=== PATIENT | male | born 1965 | race Caucasian/White ===

== ENCOUNTER → 2017-01-06 | Outpatient (CLI) | payer OTHER ==
--- NOTE | 2017-01-06 11:51 | US ---
EXAMINATION TYPE: US abdomen complete DATE OF EXAM: 01/06/2017 COMPARISON: NONE CLINICAL HISTORY: R10.9 unspecified Abd Pain. Lower back pain, history of kidney stones EXAM MEASUREMENTS: Liver Length: 14.5 cm Gallbladder Wall: 0.2 cm CBD: 0.3 cm Spleen: 11.3 cm Right Kidney: 10.4 x 4.3 x 5.5 cm Left Kidney: 10.6 x 5.4 x 5.2 cm *Technical limitations due to large amount of overlying bowel content Pancreas: limited evaluation due to overlying bowel Liver: hyperechoic area = 0.9 x 0.8 x 0.9cm, probable hemangioma Gallbladder: no evidence of stones Evidence for sonographic Jerry's sign: no CBD: appears wnl Spleen: appears wnl Right Kidney: no evidence of hydronephrosis Left Kidney: probable cystic area mid = 1.4 x 1.4 x 1.4cm Upper IVC: wnl Abd Aorta: visualized portions appear wnl IMPRESSION: 1. Left renal cyst. Monitoring is recommended. 2. Probable hemangioma within the liver. 3. No renal stones or hydronephrosis.
== END | disposition home or self-care (01) ==
LOC: RADUSWWP 10:46
PROVIDERS: ATTEND Family Medicine
DX: N28.1 Cyst of kidney, acquired (principal)
CPT/HCPCS: 76700

== ENCOUNTER 2018-12-08 15:47 | Inpatient (IN) | payer OTHER ==
[2018-12-08] MEDS ORDERED: fentaNYL (PF) 50 MCG/ML 2 ML AMP IVP ONE (16:05)
[2018-12-08] MEDS ORDERED: methylPREDNISolone SOD SUCCI 125 MG/2 ML VIAL IV ONE (16:05)
[2018-12-08] MEDS ORDERED: LIDOCAINE 1% INJ 10MG/ML (20 ML MDV) SQ ONE ×2 (16:06→16:15)
[2018-12-08] MEDS ORDERED: IV FLUID CONTINUATION 1,000 ML IV ONE (16:13)
[2018-12-08] MEDS ORDERED: BIVALIRUDIN BOLUS 250 MG/50 ML IV ONE (16:27)
[2018-12-08] MEDS ORDERED: BIVALIRUDIN 250 MG in SODIUM CHLORIDE 0.9% 50 ML IV ONE (16:28)
[2018-12-08] MEDS ORDERED: NITROGLYCERIN 1000MCG/10ML SYRINGE INTRACORON ONE (16:37)
[2018-12-08] MEDS ORDERED: IOPAMIDOL-370 100ML BTL INJ ONE ×3 (16:38→17:01)
[2018-12-08] MEDS ORDERED: SODIUM CHLORIDE 0.9% 1,000 ML IV SCH (17:00)
[2018-12-08] MEDS ORDERED: ATROPINE SULFATE 0.1 MG/ML 10ML SYRINGE IV PRN (17:00)
[2018-12-08] MEDS ORDERED: RX INFO: IV CONTRAST WAS GIVEN 1 EACH MISC MISCELLANE PRN (17:00)
[2018-12-08] MEDS ORDERED: MAG HYDROX/AL HYDROX/SIMETH 30 ML CUP PO PRN (17:00)
[2018-12-08] MEDS ORDERED: ZOLPIDEM 5 MG TAB PO PRN (17:00)
[2018-12-08] MEDS ORDERED: NITROGLYCERIN SL TABS 0.4 MG TAB SUBLINGUAL PRN (17:00)
[2018-12-08 17:34] LABS: Glucose,Whole Blood 99 mg/dL (75-99)
--- NOTE | 2018-12-08 20:07 | P.HPIM ---
History of Present Illness H&P Date: 12/08/18 Chief Complaint: chest pain Patient is a 54-year-old male past medical history of diverticulosis, chronic low back pain, hypertension not taking medication, and tobacco abuse who initially presented to [facility] with complaints of chest pain. He was found to have an ST segment elevated myocardial infarction. He was emergently transferred here directly to the [facility]. He underwent cardiac catheterization with placement of 1 drug-eluting stent to the RCA. He was subsequently admitted to ICU. Patient seen and examined at bedside. He reports intermittent chest discomfort for the last 2-3 days. Today it was worsening in nature and constant. He describes as retrosternal. He started noticing some left arm pain. Initially proceeded to his PCP but discovered that it was closed. He then drove himself to [facility]. He reports that he had pain radiating open his jaw, shortness of breath, and diaphoresis. He is unsure if his diaphoresis with secondary to working outside in the yard. That is when his chest pain began t beulah. He is having some intermittent dizziness and some nausea. He reports that he has had intermittent nausea over the last 4-5 days and worsening shortness of breath with exertion. He does have a family history of coronary artery disease and a father with a myocardial infarction. He has recently been on antibiotics for a diverticulitis flare. He reports that his diarrhea is improved but he still having intermittent bright red blood in his stools. He is not taking any medications on a chronic basis. He reports that Dr. Singh had asked him to take high blood pressure medication several years ago but it made him feel very tired and fatigued so he stopped this medication. He also has a history of high cholesterol but was able to control this with his diet. He reports that his last profile is approximately 2 years ago was within normal limits. Patient reports he was on Lipitor several years ago but had severe joint pain and muscle aches. He was taken off Lipitor and this improved. He reports some abdominal fullness, feels like he needs to urinate but is unable to do so. This is the first time this has occurred. Review of Systems Pertinent positives and negatives as discussed in HPI, a complete review of systems was performed and all other systems are negative. Past Medical History Additional Past Medical History / Comment(s): Diverticulitis. Chronic back pain. Hypertension not on medications, history of dyslipidemia which was improved with diet control History of Any Multi-Drug Resistant Organisms: None Reported Past Surgical History: Heart Catheterization With Stent, Hernia Repair, Orthopedic Surgery Additional Past Surgical History / Comment(s): COLONOSCOPY. LT ANKLE SX. 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 [employer] - Past Family History Father Family Medical History: Cancer, Congestive Heart Failure (CHF), Coronary Artery Disease (CAD), Myocardial Infarction (CT) Sister(s) Family Medical History: Cancer Medications and Allergies Home Medications Medication Instructions Recorded Confirmed Type Cholecalciferol (Vitamin D3) 5,000 unit PO DAILY 12/08/18 12/08/18 History [Vitamin D3] Allergies Allergy/AdvReac Type Severity Reaction Status Date / Time acetaminophen Allergy NOSE BLEEDS Verified 12/08/18 17:47 [From Darvocet-N 100] Iodinated Contrast- Oral and Allergy Anaphylaxis Verified 12/08/18 17:47 IV Dye propoxyphene Allergy NOSE BLEEDS Verified 12/08/18 17:47 [From Darvocet-N 100] Physical Exam Osteopathic Statement: *. No significant issues noted on an osteopathic structural exam other than those noted in the History and Physical/Consult. Vitals: Vital Signs Pulse Resp BP Pulse Ox 12/08/18 19:30 70 12 126/87 95 12/08/18 19:00 76 23 138/88 96 12/08/18 18:30 80 18 129/90 93 L 12/08/18 18:00 72 12 125/87 95 12/08/18 17:50 75 15 95 12/08/18 17:40 62 15 124/82 95 12/08/18 17:30 58 L 10 L 125/99 94 L Intake and Output 12/08/18 12/08/18 12/08/18 06:59 14:59 22:59 Intake Total 474 Balance 474 Intake: IV 324 Sodium Chloride 0.9% 1, 200 000 ml @ 100 mls/hr IV . Q10H [facility] Rx#:[id number] Oral 150 Other: Weight 82.72 kg General: non toxic, no distress, appears at stated age, normal weight Derm: no unusual rashes/lesions no unusual ecchymoses, warm, dry Head: atraumatic, normocephalic, symmetric Eyes: EOMI, no lid lag, anicteric sclera, pupils equal round reactive to light ENT: Nose and ears atraumatic, no thrush, no pharyngeal erythema Neck: No thyromegaly, no cervical lymphadenopathy, trachea midline, supple Mouth: no lip lesion, mucus membranes moist Cardiovascular: S1S2 reg, no murmur, positive posterior tibial pulse bilateral, no edema, capillary refill less than 2 seconds Lungs: CTA bilateral, no rhonchi, no rales , no accessory muscle use Abdominal: soft, nontender to palpation, no guarding, no appreciable organomegaly, normal bowel sounds Ext: no gross muscle atrophy, muscle strength 5 out of 5 in all upper extremities grossly, no contractures, Neuro: CN II-XI grossly intact, light touch intact all 4 extremities, finger to nose within normal limits, Psych: Alert, oriented, appropriate affect Thrombosis Risk Factor Assmnt - DVT/VTE Prophylaxis DVT/VTE Prophylaxis: Low risk, early ambulation encouraged - Choose All That Apply Any of the Below Risk Factors Present?: Yes Each Factor Represents 1 point: Age 41-60 years Thrombosis Risk Factor Assessment Total Risk Factor Score: 1 Thrombosis Risk Factor Assessment Level: Low Risk Assessment and Plan Assessment: ST segment elevated myocardial infarction with stent to the RCA -Aspirin, Lipitor, Plavix -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 Consider Crestor on discharge. -Beta blockade with metoprolol -Check echocardiogram Hypertension -Goal systolic blood pressure 120 or less -Continue with metoprolol -Follow blood pressures Dyslipidemia -Was diet controlled -Check lipid profile -Statin therapy, Crestor on discharge Tobacco abuse -Cessation -Does not want nicotine patch at this point in time History of diverticulitis -Has completed therapy -Continue outpatient follow-up The patient is admitted with an anticipated greater than 2 midnight stay for evaluation of STEMI. Surrogate decision-maker: CODE STATUS:Full DVT prophylaxis: SCDs Discussed with:Patient, nursing, family Anticipated discharge date: 1-[address]: home A total of 65 minutes was spent on the care of this complex patient more than 50% of the time was spent in counseling and care coordination.
[2018-12-08] MEDS: ATORVASTATIN 80 MG TAB PO SCH (20:17)
[2018-12-08] MEDS: METOPROLOL TARTRATE 25 MG TAB PO SCH (20:17)
--- NOTE | 2018-12-08 22:04 | CONS ---
CONSULTATION ATTENDING PHYSICIAN: Dr. Singh HISTORY OF PRESENT ILLNESS: Mr. Nunes is a 53-year-old male who is transferred from [facility] for symptoms of chest pain. The patient has no history of coronary artery disease. There is history of chronic tobacco use about a pack and half a day as well history of premature coronary disease in his father. The patient presented to the emergency room with symptoms of chest discomfort. The discomfort was radiated up to the neck, the jaw and the left arm. The discomfort was not always activity related. It has been going on for the last couple days. In the emergency room at [facility], his initial EKG revealed no acute changes. On subsequent EKGs, there was minimal ST-segment changes on the lateral precordial leads. Because of his persistent symptoms and his presentation, he was transferred to the ER at [facility]. The patient is active physically. Denies any prior history of chest discomfort. Denies any history of myocardial infarction, PND, orthopnea, or peripheral edema. He denies any dizziness or palpitation. He drinks alcohol occasionally. Drinks caffeine and smokes as noted. REVIEW OF SYSTEMS: RESPIRATORY system: He has no documented history of asthma, emphysema, but he has some cough. GI system: No recent GI bleed. No peptic ulcer disease. system: No dysuria or hematuria. NERVOUS SYSTEM: No stroke or seizure. PHYSICAL EXAMINATION: He is a 53-year-old male, alert, anxious. Blood pressure 125/80 with a heart rate in the 80s. HEAD: Normocephalic. Eyes sclerae anicteric. NECK: Good upstroke. No bruit. No jugular venous distention. LUNGS: Clear to auscultation. HEART: Regular rate and rhythm S1, S2. No S3. No S4. No murmur or rub. ABDOMEN: Soft, nontender. Positive bowel sounds. No megaly. EXTREMITIES: No edema. Intact distal pulses. LAB DATA: Lab data revealed a troponin of less than 0.017, potassium 4.2, BUN and creatinine 17 and 1. Platelet count 245, hemoglobin of 16.5. Initial EKG revealed sinus mechanism, normal axis and intervals with voltage criteria for left ventricular hypertrophy. Patient had a total of 4 EKGs. On the 4th EKG, there was minimal ST-segment elevation in lead 1 and aVL and the lateral precordial leads with appearance suggestive of early repolarization changes. IMPRESSION: 1. Symptoms of chest discomfort that have some features suggestive of coronary artery disease with borderline changes on the EKG. 2. Rule out acute myocardial infarction. 3. Chronic tobacco use. 4. Family history of premature coronary disease. RECOMMENDATION: In view of the persistent symptoms and the EKG changes, I have recommended proceeding with coronary angiography to assess his status and guide treatment. The rationale behind the procedure as well as risks and complications were discussed with the patient who is in full understanding and agreement. Thank you for this consult. We will follow with you. MMODL / IJN: [id number] /
--- NOTE | 2018-12-08 23:49 | PTCA ---
PERCUTANEOUSTRANS CORORONARY ANGIOGRAPHY Mr. Nunes is a 53-year-old male with a history of premature coronary disease in the family as well as chronic tobacco use, who presented with symptoms of chest discomfort, underwent cardiac catheterization, was found to have a subtotally occluded mid distal segment of the RCA. In view of that, recommendation made regarding angioplasty and stenting. The procedure as well as risks and complications were discussed with the patient who is in full understanding and agreement. PROCEDURE: A 6-Sri [place]ankan FR4 guiding catheter was introduced into the system. After cannulating the right coronary ostium, a 0.014 balanced medium weight J-wire was advanced across the lesion, positioned distally. Then a 2.5 x 12 mm Trek balloon was advanced. One inflation at 10 atmospheres was done. Following that, the balloon was removed and a 4.0 x 33 mm Xience Kirsty stent was deployed. It was dilated at 14 atmospheres. After the last inflation, after appropriate wait, the balloon and the guidewire were withdrawn back in the guiding catheter. Images were obtained, repeated. Those images reveal stable successful stenting. At that point, the guiding catheter, the balloon and the guidewire were removed. Left ventriculogram was performed. Following that, catheter and sheaths were removed. Hemostasis was obtained with deployment of an Angio- Seal. There was no immediate complication. Patient is returned to his room in stable condition. Of note, the patient received Angiomax per protocol. He was loaded with clopidogrel at [facility]. He had EKG changes and chest discomfort that resolved at the end of the procedure. RESULTS: Successful stenting of a long segment of the mid distal RCA with reduction of stenosis from 99% to 0%. RECOMMENDATION: Patient will be continued on aspirin, Plavix, beta pawan, and statin. The importance of dual antiplatelet treatment and smoking cessation were discussed with the patient and his family and they are in full understanding and agreement. Duration of procedure is 48 minutes. MMODL / IJN: [id number] /
--- NOTE | 2018-12-08 23:49 | CC ---
CARDIAC CATHETERIZATION REPORT Mr. Nunes is a 53-year-old male with a family history of premature coronary disease, chronic tobacco use, who presented to [facility] with symptoms of chest discomfort. He had borderline ST-segment elevation in 1 AVL lateral and peripheral leads. Because of that, he was transferred to [facility] and recommendation made regarding cardiac catheterization. The procedures, risks and complications were discussed with the patient who is in full understanding and agreement. PROCEDURE DESCRIPTION: Patient was brought to the catheterization laboratory technician in a fasting, semi sedated state, after receiving fentanyl and Benadryl and achieving moderate conscious state, attempt to cannulate the right radial artery was unsuccessful because of spasm, inability to advance the wire. At that time, using Xylocaine anesthesia and Seldinger technique, 6-Iranian sheath was introduced in the right femoral artery. Selective right and left coronary angiography performed using 6-Iranian 4 bend right and left Tammie catheter. Multiple views of the coronary arteries including hemiaxial views obtained. Following that, angioplasty and stenting of the RCA was performed. Following that, a 6-Iranian tight pigtail catheter was introduced into the left ventricle and a 30 degree CHRISTIAN view of the left ventricle was obtained. Following that, catheter and sheaths were removed. Hemostasis was obtained with deployment of an Angio-Seal. There was no immediate complication. Patient is returned to his room in stable condition. FINDINGS: FLUOROSCOPY: There was mild calcification involving the LAD and the right coronary artery. LEFT MAIN: This is a large-sized vessel bifurcating into left circumflex, left anterior descending artery, left main coronary artery has no evidence of obstructive coronary artery disease. LEFT ANTERIOR DESCENDING ARTERY: This is a large-sized vessel reaching toward the apex, giving rise to 2 diagonal branches. Left anterior descending artery in the mid segment has 10 to 20% plaque without any evidence of high-grade stenosis. There were plaques of 20% to 30% in the diagonal branch. LEFT CIRCUMFLEX: This is a large nondominant vessel giving rise to 2 large obtuse marginal branches. The left circumflex proximally has 20% to 30% plaque. The rest of the vessel has no high-grade stenosis. RIGHT CORONARY ARTERY: This is a large dominant vessel bifurcating distally into PDA and posterolateral segment and branches. The right coronary artery in mid segment has mild intimal disease of 20% to 30%, the mid distal segment has a 99% stenosis. The rest of the vessel has no high-grade stenosis. LEFT VENTRICULOGRAM: Left ventriculogram was performed in 30 degree CHRISTIAN view and revealed normal left ventricular size and systolic function. The ejection fraction is 60%. There was no significant mitral regurgitation. HEMODYNAMICS: There was no gradient across the aortic valve. The left ventricle end-diastolic ventricular was 12-16 mmHg. CONCLUSION: 1. Critical stenosis involving the mid distal segment of the right coronary artery. 2. Mild disease involving the left anterior descending coronary artery and the left circumflex. RECOMMENDATION: In view of finding anatomy, I recommend proceeding with angioplasty and stenting of the right coronary artery. The procedure as well as risks and complication were discussed with the patient who is in full understanding and agreement. MMODL / IJN: [id number] /
[2018-12-09 05:39] LABS: HCT 45.6 % (39.0-53.0); HGB 15.3 gm/dL (13.0-17.5); MCH 32.4 pg (25.0-35.0); MCHC 33.6 g/dL (31.0-37.0); MCV 96.2 fL (80.0-100.0); Platelet Count 246 k/uL (150-450); RBC 4.73 m/uL (4.30-5.90); RDW 12.7 % (11.5-15.5)
[2018-12-09 05:51] LABS: African American GFR (CKD) >90 (>60 ml/min/1.73 sqM); Anion Gap 7 mmol/L; Blood Urea Nitrogen 14 mg/dL (9-20); Calcium 8.8 mg/dL (8.4-10.2); Carbon Dioxide 20 mmol/L (22-30); Chloride 111 mmol/L (98-107); Cholesterol 183 mg/dL (<200); Glucose 123 mg/dL (74-99); HDL Cholesterol 46 mg/dL (40-60); LDL Cholesterol,Calculated 124 mg/dL (0-99); Potassium 4.6 mmol/L (3.5-5.1); Sodium 138 mmol/L (137-145); Triglycerides 66 mg/dL (<150)
[2018-12-09] MEDS: CHOLECALCIFEROL 1,000 UNIT TAB PO SCH (08:49)
[2018-12-09] MEDS: ASPIRIN 81 MG PO SCH (08:49)
[2018-12-09] MEDS: CLOPIDOGREL 75 MG TAB PO SCH (08:49)
[2018-12-09] MEDS: METOPROLOL TARTRATE 25 MG TAB PO SCH ×2 (08:49→20:46)
--- NOTE | 2018-12-09 09:06 | PN ---
PROGRESS NOTE Mr. Nunes is a 53-year-old male who presented with symptoms of chest pain and borderline EKG changes and underwent cardiac catheterization, was found to have critical stenosis involving the mid distal right coronary artery, underwent stenting of that vessel. He is doing quite well this morning. He is denying any chest pain. No dizziness. No palpitation. He denies any nausea. Apparently, he had myalgia from the atorvastatin in the past and we will see if he tolerates Crestor. Otherwise, he may be a candidate for Repatha or . He continues to be at this time on aspirin once a day, Plavix 75 mg daily, metoprolol tartrate 25 mg twice a day, and atorvastatin 80 mg daily. PHYSICAL EXAMINATION: Blood pressure 107/70 with a heart rate in the 70s. LUNGS: Clear. HEART: Regular rate and rhythm S1, S2. No S3. No rub. ABDOMEN: Soft, nontender. EXTREMITIES: No edema. Right groin no hematoma. LAB DATA: Lab data revealed a troponin peak of 0.175. BUN and creatinine 14 and 0.6, hemoglobin of 15.3, LDL of 124, sodium 138. IMPRESSION: 1. Status post myocardial infarction and stenting of the right coronary artery. 2. History of chronic tobacco use. 3. Hyperlipidemia. RECOMMENDATIONS: From the cardiac standpoint, we will continue present therapy. Increase his level of activity. He should be able to be transferred to telemetry floor. We will obtain echocardiogram with Doppler and depending on his progress, further recommendations will be made. MMALVINOL / IJN: [id number] /
[2018-12-09 16:05] VITALS: BMI 26.2
--- NOTE | 2018-12-09 17:29 | P.PN ---
Subjective Progress Note Date: 12/09/18 (delayed charting seen at 0830) Principal diagnosis: chest pain Patient is a 54-year-old male past medical history of diverticulosis, chronic low back pain, hypertension not taking medication, and tobacco abuse who initially presented to [facility] with complaints of chest pain. He was found to have an ST segment elevated myocardial infarction. He was emergently transferred here directly to the [facility]. He underwent cardiac catheterization with placement of 1 drug-eluting stent to the RCA. He was subsequently admitted to ICU. Has done well. LDL elevated. Patient reports hx of statin induced myopathy Patient seen and examined at bedside. No chest pain, no shortness of breath, no nausea, no vomiting, slight terra pain. Objective - Vital Signs Vital signs: Vital Signs Temp 97.9 F 12/09/18 16:00 Pulse 52 L 12/09/18 16:00 Resp 21 12/09/18 16:00 BP 101/66 12/09/18 16:00 Pulse Ox 95 12/09/18 16:00 Intake & Output 12/08/18 12/09/18 12/09/18 18:59 06:59 18:59 Intake Total 374 1840 750 Output Total 1000 550 Balance 374 840 200 Weight 82.72 kg 85.5 kg 85.5 kg Intake: IV 224 1300 0 Sodium Chloride 0.9% 1, 100 1300 0 000 ml @ 100 mls/hr IV . Q10H [facility] Rx#:[id number] Oral 150 540 750 Output: Urine 1000 550 Other: Voiding Method Urinal Urinal # Voids 1 - Exam General: non toxic, no distress, appears at stated age Derm: warm, dry Head: atraumatic, normocephalic, symmetric Eyes: EOMI, no lid lag, anicteric sclera Mouth: no lip lesion, mucus membranes moist Cardiovascular: S1S2 reg, no murmur, positive posterior tibial pulse bilateral, Lungs: CTA bilateral, no rhonchi, no rales , no accessory muscle use Abdominal: soft, nontender to palpation, no guarding, no appreciable organomegaly Ext: no gross muscle atrophy, no edema, no contractures Neuro: CN II-XI grossly intact, no focal neuro deficits Psych: Alert, oriented, appropriate affect - Labs CBC & Chem 7: 12/09/18 05:19 12/09/18 05:19 Labs: Abnormal Lab Results - Last 24 Hours (Table) 12/08/18 12/09/18 12/09/18 Range/Units 23:39 05:19 05:19 WBC (3.8-10.6) k/uL Chloride 111 H (98-107) mmol/L Carbon Dioxide 20 L (22-30) mmol/L Creatinine 0.64 L (0.66-1.25) mg/dL Glucose 123 H (74-99) mg/dL Troponin I 0.064 H* 0.175 H* (0.000-0.034) ng/mL LDL Cholesterol, Calc 124 H (0-99) mg/dL 12/09/18 Range/Units 05:19 WBC 11.0 H (3.8-10.6) k/uL Chloride (98-107) mmol/L Carbon Dioxide (22-30) mmol/L Creatinine (0.66-1.25) mg/dL Glucose (74-99) mg/dL Troponin I (0.000-0.034) ng/mL LDL Cholesterol, Calc (0-99) mg/dL Assessment and Plan Assessment: ST segment elevated myocardial infarction with stent to the RCA -Aspirin, Lipitor, Plavix -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 Crestor on discharge, will be evaluated at cardio office for PCSK9 inhibitor -Beta blockade with metoprolol -echocardiogram pending Hypertension -Goal systolic blood pressure 120 or less -Continue with metoprolol -Follow blood pressures Dyslipidemia -Was diet controlled -Statin therapy, Crestor on discharge Tobacco abuse -Cessation -Does not want nicotine patch at this point in time History of diverticulitis -Has completed therapy -Continue outpatient follow-up DVT prophylaxis: SCDs Discussed with:Patient, nursing,Dr. Kc Anticipated discharge date: [address]: home A total of 25 minutes was spent on the care of this complex patient more than 50% of the time was spent in counseling and care coordination.
[2018-12-09] MEDS: ATORVASTATIN 80 MG TAB PO SCH (20:46)
[2018-12-10 04:59] LABS: African American GFR (CKD) >90 (>60 ml/min/1.73 sqM); Anion Gap 6 mmol/L; Blood Urea Nitrogen 17 mg/dL (9-20); Calcium 8.8 mg/dL (8.4-10.2); Carbon Dioxide 24 mmol/L (22-30); Chloride 109 mmol/L (98-107); Glucose 95 mg/dL (74-99); Potassium 4.5 mmol/L (3.5-5.1); Sodium 139 mmol/L (137-145)
--- NOTE | 2018-12-10 08:43 | PN ---
PROGRESS NOTE Mr. Nunes is a 53-year-old male who presented with an acute myocardial infarction underwent stenting of his right coronary artery. He is doing well this morning. He is denying any symptoms of chest pain. His breathing has been stable. He denies any dizziness or palpitation. Hemodynamically, he is stable. He has no evidence of arrhythmia. He continues on aspirin once a day, Lipitor 80 mg daily, metoprolol tartrate 25 mg twice a day, and Plavix 75 mg daily. PHYSICAL EXAMINATION: Blood pressure 120/80 with the heart rate in the 60s. LUNGS: Clear. HEART: Regular rate and rhythm. S1, S2. No S3. No rub. ABDOMEN: Soft, nontender. EXTREMITIES: No edema. IMPRESSION: 1. Status post myocardial infarction and stenting of the RCA. 2. Chronic tobacco use. 3. Hypertension. RECOMMENDATION: Patient will obtain echocardiogram today and I am hopeful he will be able to be discharged home to be followed as an outpatient. I have discussed with him again the importance of smoking cessation. He will be started on a low-dose of an SANKET inhibitor. MMODL / IJN: [id number] /
[2018-12-10] MEDS ORDERED: LISINOPRIL 2.5 MG TAB PO SCH (09:00)
[2018-12-10] MEDS: ASPIRIN 81 MG PO SCH (09:15)
[2018-12-10] MEDS: CHOLECALCIFEROL 1,000 UNIT TAB PO SCH (09:15)
[2018-12-10] MEDS: CLOPIDOGREL 75 MG TAB PO SCH (09:15)
[2018-12-10] MEDS: METOPROLOL TARTRATE 25 MG TAB PO SCH (09:15)
--- NOTE | 2018-12-10 12:01 | ECHOF ---
Referral Reason:ct MEASUREMENTS -------- HEIGHT: 180.3 cm WEIGHT: 85.3 kg BP: 120/85 RVIDd: 2.7 cm (< 3.3) IVSd: 1.2 cm (0.6 - 1.1) LVIDd: 4.5 cm (3.9 - 5.3) LVPWd: 1.1 cm (0.6 - 1.1) IVSs: 1.5 cm LVIDs: 3.3 cm LVPWs: 1.7 cm LA Diam: 3.3 cm (2.7 - 3.8) LAESV Index (A-L): 20.04 ml/m Ao Diam: 3.5 cm (2.0 - 3.7) AV Cusp: 1.9 cm (1.5 - 2.6) MV EXCURSION: 28.243 mm (> 18.000) MV EF SLOPE: 132 mm/s (70 - 150) EPSS: 1.2 cm MV E Yaniv: 0.83 m/s MV DecT: 262 ms MV A Yaniv: 0.68 m/s MV E/A Ratio: 1.22 FINDINGS -------- Sinus rhythm. This was a technically good study. The left ventricular size is normal. There is borderline concentric left ventricular hypertrophy. Overall left ventricular systolic function is normal with, an EF between 60 - 65 %. The right ventricle is normal in size. Normal LA size by volume 22+/-6 ml/m2. The right atrium is normal in size. Interatrial and interventricular septum intact. The aortic valve is trileaflet and appears structurally normal. The mitral valve is normal. The tricuspid valve appears structurally normal. Trace/mild (physiologic) pulmonic regurgitation. The aortic root size is normal. Normal inferior vena cava with normal inspiratory collapse consistent with estimated right atrial pre ssure of 5 mmHg. There is no pericardial effusion. CONCLUSIONS -------- 1. Sinus rhythm. 2. This was a technically good study. 3. The left ventricular size is normal. 4. There is borderline concentric left ventricular hypertrophy. 5. Overall left ventricular systolic function is normal with, an EF between 60 - 65 %. 6. The right ventricle is normal in size. 7. Normal LA size by volume 22+/-6 ml/m2. 8. The right atrium is normal in size. 9. Interatrial and interventricular septum intact. 10. The aortic valve is trileaflet and appears structurally normal. 11. The mitral valve is normal. 12. The tricuspid valve appears structurally normal. 13. Trace/mild (physiologic) pulmonic regurgitation. 14. The aortic root size is normal. 15. Normal inferior vena cava with normal inspiratory collapse consistent with estimated right atrial pressure of 5 mmHg. 16. There is no pericardial effusion. TITLE I MATH TUTOR: Meagan Taylor RDCS
[2018-12-10 16:52] VITALS: BP 119/67; PULSE 61; RESP 15; TEMP 98.1
== END 2018-12-10 17:00 | disposition home or self-care (01) | DRG 247 ==
LOC: 3SCARD 15:47 → 2SICU 17:03
PROVIDERS: ADMIT Internal Medicine; ATTEND Hospitalist
PROC: B2151ZZ Fluoroscopy of Left Heart using Low Osmolar Contrast (ICD-10-PCS; 2018-12-08)
PROC: 027034Z Dilation of Coronary Artery, One Artery with Drug-eluting Intraluminal Device, Percutaneous Approach (ICD-10-PCS; principal; 2018-12-08 15:52)
PROC: B2111ZZ Fluoroscopy of Multiple Coronary Arteries using Low Osmolar Contrast (ICD-10-PCS; 2018-12-08 15:52)
DX: I21.11 ST elevation (STEMI) myocardial infarction involving right coronary artery (principal); E78.5 Hyperlipidemia, unspecified; I10 Essential (primary) hypertension; K57.90 Diverticulosis of intestine, part unspecified, without perforation or abscess without bleeding; G89.29 Other chronic pain; M54.5 Low back pain; F17.210 Nicotine dependence, cigarettes, uncomplicated; Z71.6 Tobacco abuse counseling; Z79.899 Other long term (current) drug therapy; Z87.19 Personal history of other diseases of the digestive system; Z88.5 Allergy status to narcotic agent; Z88.8 Allergy status to other drugs, medicaments and biological substances; Z88.6 Allergy status to analgesic agent; Z91.041 Radiographic dye allergy status; Z82.49 Family history of ischemic heart disease and other diseases of the circulatory system; Z80.9 Family history of malignant neoplasm, unspecified
CPT/HCPCS: 80048; 80061; 84484; 85027; 85347; 93306; 93458; C1874

== ENCOUNTER → 2019-01-29 | Outpatient (CLI) | payer OTHER ==
[2019-01-29 12:01] LABS: African American GFR (CKD) 98.5 (60.0-200.0); Albumin 4.3 g/dL (3.80-4.90); Albumin/Globulin Ratio 2.05 (1.60-3.17); Calcium 9.7 mg/dL (8.7-10.3); Chol/HDL Ratio 3.38; Globulin 2.1 g/dL (1.6-3.3); LDL Cholesterol,Calculated 88.2 mg/dL (0.0-131.0); Potassium 4.5 mmol/L (3.5-5.5); Total Bilirubin 0.8 mg/dL (0.3-1.2); Total Protein 6.4 g/dL (6.2-8.2); VLDL Calculation 23.8 mg/dL (5.00-40.00)
== END | disposition home or self-care (01) ==
LOC: LABWHC1 06:38
PROVIDERS: ATTEND Internal Medicine Interventional Cardiology
DX: E78.2 Mixed hyperlipidemia (principal)
CPT/HCPCS: 36415; 80053; 80061

== ENCOUNTER → 2019-06-18 | Outpatient (CLI) | payer OTHER ==
[2019-06-18 16:51] LABS: Chol/HDL Ratio 2.92; LDL Cholesterol,Calculated 72.8 mg/dL (0.0-131.0); VLDL Calculation 19.2 mg/dL (5.00-40.00)
== END | disposition home or self-care (01) ==
LOC: LABWHC1 08:21
PROVIDERS: ATTEND Nurse Practitioner Adult Health
DX: E78.2 Mixed hyperlipidemia (principal)
CPT/HCPCS: 36415; 80061

== ENCOUNTER 2020-02-01 00:55 | Emergency (ER) | payer OTHER ==
[2020-02-01 01:00] VITALS: TEMP 98.4
--- NOTE | 2020-02-01 01:20 | XR ---
EXAM: XR Chest, 2 Views CLINICAL HISTORY: ITS.REASON XR Reason: Chest Pain TECHNIQUE: Frontal and lateral views of the chest. COMPARISON: No relevant prior studies available. FINDINGS: Lungs: Unremarkable. No consolidation. Pleural space: Unremarkable. No pleural effusion or pneumothorax. Heart: Unremarkable. No cardiomegaly or pulmonary vascular congestion. Mediastinum: Unremarkable. Bones/joints: Unremarkable. IMPRESSION: No evidence of acute cardiopulmonary disease.
[2020-02-01 01:45] LABS: Basophils # (A) 0.1 k/uL (0-0.2); Basophils % (A) 1 %; Eosinophils # (A) 0.5 k/uL (0-0.7); Eosinophils % (A) 5 %; HGB 14.9 gm/dL (13.0-17.5); Lymphocytes # (A) 2.8 k/uL (1.0-4.8); Lymphocytes % (A) 31 %; MCHC 32.4 g/dL (31.0-37.0); MCV 98.7 fL (80.0-100.0); Mean Platelet Volume 7.4; Monocytes # (A) 0.7 k/uL (0-1.0); Monocytes % (A) 7 %; Neutrophils # (A) 4.9 k/uL (1.3-7.7); Neutrophils % (A) 54 %; Platelet Count 211 k/uL (150-450); RBC 4.66 m/uL (4.30-5.90); RDW 12.5 % (11.5-15.5)
[2020-02-01 01:53] LABS: Partial Thromboplastin Time 26.5 sec (22.0-30.0); Prothrombin Time 10.1 sec (9.0-12.0)
[2020-02-01 01:55] LABS: ALT 15 U/L (4-49); AST 23 U/L (17-59); African American GFR (CKD) >90 (>60 ml/min/1.73 sqM); Albumin 4.1 g/dL (3.5-5.0); Alkaline Phosphatase 123 U/L (38-126); Anion Gap 9 mmol/L; Blood Urea Nitrogen 20 mg/dL (9-20); Calcium 9.4 mg/dL (8.4-10.2); Carbon Dioxide 21 mmol/L (22-30); Chloride 106 mmol/L (98-107); Glucose 106 mg/dL (74-99); Magnesium 2.1 mg/dL (1.6-2.3); Non-African American GFR(CKD) >90 (>60 ml/min/1.73 sqM); Potassium 4.7 mmol/L (3.5-5.1); Sodium 136 mmol/L (137-145); Total Bilirubin 0.4 mg/dL (0.2-1.3)
[2020-02-01] MEDS ORDERED: MORPHINE SULFATE 4 MG/ML SYRINGE IV STA (02:05)
--- NOTE | 2020-02-01 02:07 | ED ---
Chest Pain HPI - General Chief Complaint: Chest Pain Stated Complaint: Chest Pain Time Seen by Provider: 02/01/20 01:09 Source: patient Mode of arrival: wheelchair Limitations: no limitations - History of Present Illness Initial Comments: This patient is a 54-year-old man who presents to be evaluated for epigastric chest pain that does radiate to his back. The patient states this had come on approximately 28 hours ago after he had lifted some heavy objects at work. Patient states that as the pain did not resolve he felt he should be seen here. He is not having any anginal type symptoms. The patient has had previous [place] but states this is not identical to that. MD Complaint: chest pain Onset/Timin -: hour(s) Onset: during rest Pain Location: epigastric Pain Radiation: back Severity: severe Quality: aching Consistency: constant Improves With: nothing Worsens With: nothing Treatments Prior to Arrival: none - Related Data Home Medications Medication Instructions Recorded Confirmed Cholecalciferol (Vitamin D3) 5,000 unit PO DAILY 12/08/18 12/08/18 [Vitamin D3] Previous Rx's Medication Instructions Recorded Rosuvastatin [Crestor] 20 mg PO HS #30 tablet 12/09/18 Aspirin 81 mg PO DAILY chew 12/10/18 Clopidogrel [Plavix] 75 mg PO DAILY #90 tab 12/10/18 Metoprolol Tartrate [Lopressor] 25 mg PO BID #180 tab 12/10/18 Nicotine 21Mg/24Hr Patch [Habitrol] 1 each TRANSDERM DAILY #14 patch 12/10/18 Nitroglycerin Sl Tabs [Nitrostat] 0.4 mg SUBLINGUAL Q5M PRN #25 tab 12/10/18 lisinopriL [Zestril] 2.5 mg PO DAILY #90 tab 12/10/18 Allergies Allergy/AdvReac Type Severity Reaction Status Date / Time acetaminophen Allergy NOSE BLEEDS Verified 02/01/20 01:00 [From Darvocet-N 100] Iodinated Contrast Media Allergy Anaphylaxis Verified 02/01/20 01:00 [Iodinated Contrast- Oral and IV Dye] propoxyphene Allergy NOSE BLEEDS Verified 02/01/20 01:00 [From Darvocet-N 100] Review of Systems ROS Statement: Those systems with pertinent positive or pertinent negative responses have been documented in the HPI. ROS Other: All systems not noted in ROS Statement are negative. Constitutional: Denies: fever, chills, weakness ENT: Denies: throat pain Respiratory: Denies: cough, dyspnea Cardiovascular: Reports: as per HPI, chest pain. Denies: palpitations, dyspnea on exertion, edema, syncope Gastrointestinal: Denies: abdominal pain, nausea, vomiting Genitourinary: Denies: dysuria, hematuria, testicular pain Musculoskeletal: Denies: back pain Skin: Denies: rash Neurological: Denies: headache, weakness, numbness EKG Findings - EKG Results: EKG: interpreted by DIONNE BHATT, sinus rhythm (Rate 77 bpm), normal axis, normal QRS, normal ST/T, no acute changes Past Medical History Past Medical History: Hyperlipidemia, Hypertension, Myocardial Infarction ([place]), Pneumonia Additional Past Medical History / Comment(s): Diverticulitis. Chronic back pain. History of Any Multi-Drug Resistant Organisms: None Reported Past Surgical History: Heart Catheterization With Stent, Hernia Repair, Orthopedic Surgery Additional Past Surgical History / Comment(s): COLONOSCOPY. LT ANKLE SX. BILAT KNEE SCOPES Past Anesthesia/Blood Transfusion Reactions: No Reported Reaction Date of Last Stent Placement:: December 08, 2018 Past Psychological History: No Psychological Hx Reported Smoking Status: Current every day smoker Past Alcohol Use History: Occasional, Rare Past Drug Use History: Marijuana - Past Family History Father Family Medical History: Cancer, Congestive Heart Failure (CHF), Coronary Artery Disease (CAD), Myocardial Infarction ([place]) Sister(s) Family Medical History: Cancer General Exam Limitations: no limitations General appearance: alert, in no apparent distress Head exam: Present: atraumatic, normocephalic Eye exam: Present: normal appearance. Absent: scleral icterus, conjunctival injection Neck exam: Present: normal inspection, full ROM Respiratory exam: Present: normal lung sounds bilaterally. Absent: respiratory distress, wheezes, rales, rhonchi, stridor, chest wall tenderness Cardiovascular Exam: Present: regular rate, normal rhythm, normal heart sounds. Absent: systolic murmur, diastolic murmur, rubs, gallop GI/Abdominal exam: Present: soft. Absent: distended, tenderness, guarding, rebound, rigid, mass, pulsatile mass, hernia Extremities exam: Present: normal inspection, normal capillary refill. Absent: pedal edema, calf tenderness Back exam: Present: normal inspection. Absent: CVA tenderness (R), CVA tenderness (L) Neurological exam: Present: alert Skin exam: Present: warm, dry, intact, normal color. Absent: rash Course Vital Signs 02/01/20 02/01/20 00:56 03:45 Temperature 98.4 F Pulse Rate 82 70 Respiratory 20 18 Rate Blood Pressure 155/73 130/70 O2 Sat by Pulse 100 98 Oximetry Chest Pain MDM - MDM Given the patient's previous cardiac history and the fact that his pain had not completely resolved, I recommend that patient be admitted for further evaluation and treatment, including at least cardiac monitoring, serial cardiac enzymes and cardiology consultation, but this point the patient is refusing. He does understand the risks associated. Disposition Clinical Impression: Chest pain Disposition: Left Against Medical Advice Condition: Undetermined Instructions (If sedation given, give patient instructions): Chest Pain (ED) Is patient prescribed a controlled substance at d/c from ED?: No Referrals: Samuel Singh MD [Primary Care Provider] - 1-2 days
[2020-02-01 03:46] VITALS: BP 130/70; PULSE 70; RESP 18
== END 2020-02-01 03:46 | disposition left against medical advice (07) ==
LOC: EC 00:55
DX: R07.9 Chest pain, unspecified (principal); I25.2 Old myocardial infarction; F17.200 Nicotine dependence, unspecified, uncomplicated; Z88.6 Allergy status to analgesic agent; Z91.041 Radiographic dye allergy status; Z88.5 Allergy status to narcotic agent; Z53.29 Procedure and treatment not carried out because of patient's decision for other reasons
CPT/HCPCS: 36415; 93005; 80053; 83735; 84484; 85025; 85610; 85730; 71046; 99285; 96374; J2270

== ENCOUNTER → 2020-05-08 | Outpatient (CLI) | payer OTHER ==
[2020-05-08 11:17] LABS: Albumin 4.7 g/dL (3.80-4.90); Albumin/Globulin Ratio 2.14 (1.60-3.17); Anion Gap 6.4 mmol/L (4.00-12.00); BUN/Creat Ratio 22.22 Ratio (12.00-20.00); Calcium 9.8 mg/dL (8.7-10.3); Carbon Dioxide 28.6 mmol/L (21.6-31.8); Chol/HDL Ratio 3.29; Globulin 2.2 g/dL (1.6-3.3); LDL Cholesterol,Calculated 100.8 mg/dL (0.0-131.0); Non-African American GFR(CKD) 95.8 (60.0-200.0); Potassium 5.4 mmol/L (3.5-5.5); Total Bilirubin 0.6 mg/dL (0.2-1.2); Total Protein 6.9 g/dL (6.2-8.2); VLDL Calculation 18.2 mg/dL (5.00-40.00)
== END | disposition home or self-care (01) ==
LOC: LABWHC1 07:05
PROVIDERS: ATTEND Internal Medicine Interventional Cardiology
DX: E78.2 Mixed hyperlipidemia (principal)
CPT/HCPCS: 36415; 80053; 80061

== ENCOUNTER → 2020-07-17 | Outpatient (CLI) | payer OTHER ==
[2020-07-17 17:43] LABS: Chol/HDL Ratio 3.41; LDL Cholesterol,Calculated 82.2 mg/dL (0.0-131.0); VLDL Calculation 23.8 mg/dL (5.00-40.00)
== END | disposition home or self-care (01) ==
LOC: LABWHC1 07:44
PROVIDERS: ATTEND Nurse Practitioner Adult Health
DX: E78.2 Mixed hyperlipidemia (principal)
CPT/HCPCS: 36415; 80061

== ENCOUNTER → 2020-08-25 | Outpatient (CLI) | payer OTHER | END | disposition home or self-care (01) | LOC: LABPAT 08:37 | PROVIDERS: ATTEND Student in an Organized Health Care Education/Training Program | DX: Z01.812 Encounter for preprocedural laboratory examination (principal); Z20.822 Contact with and (suspected) exposure to COVID-19 | CPT/HCPCS: U0003; C9803; U0005 ==

== ENCOUNTER 2020-09-15 09:45 | Day surgery (SDC) | payer OTHER ==
[2020-09-10 15:30] VITALS: BMI 26.4
[~2020-09-15 09:45] MED LIST: DEXAMETHASONE SOD PHOSPHATE 4 MG/ML 1 ML VIAL IV ONE; HYDROmorphone 0.5 MG/0.5 ML SYRINGE IVP PRN; LACTATED RINGERS 1,000 ML IV SCH; LIDOCAINE 1% (10MG/ML) FOR IV START INTRADERMA PRN; MIDAZOLAM 2 MG/2 ML VIAL IV PRN; ONDANSETRON 4 MG/2 ML VIAL IVP ONE
[2020-09-15] MEDS ORDERED: MIDAZOLAM 2 MG/2 ML VIAL IVP ONE (10:47)
[2020-09-15] MEDS ORDERED: fentaNYL (PF) 50 MCG/ML 2 ML AMP IVP ONE (10:47)
[2020-09-15] MEDS ORDERED: HEPARIN SODIUM,PORCINE/PF 5,000 UNIT/0.5 ML SYRINGE SQ ONE (12:00)
[2020-09-15] MEDS ORDERED: HEPARIN SODIUM,PORCINE 5,000 UNIT/ML 1 ML VIAL SQ ONE (12:01)
[2020-09-15] MEDS ORDERED: GLYCOPYRROLATE 0.2 MG/ML 2 ML VIAL ONE (12:25)
[2020-09-15] MEDS ORDERED: PROPOFOL 10 MG/ML 20 ML VIAL IV ONE (12:25)
[2020-09-15] MEDS ORDERED: ROCURONIUM 10 MG/ML (5 ML VIAL) IV ONE (12:25)
[2020-09-15] MEDS ORDERED: HYDROmorphone (PF) 1 MG/ML ONE (12:25)
[2020-09-15] MEDS ORDERED: ROPIVACAINE 5 MG/ML 30 ML VIAL ONE (12:25)
[2020-09-15] MEDS ORDERED: NEOSTIGMINE 1 MG/ML 10 ML VIAL ONE (12:25)
[2020-09-15] MEDS ORDERED: MIDAZOLAM 2 MG/2 ML VIAL ONE (12:25)
[2020-09-15] MEDS ORDERED: LIDOCAINE 1% INJ 10MG/ML (20 ML MDV) ONE (12:25)
[2020-09-15] MEDS ORDERED: SUCCINYLCHOLINE CHLORIDE 100 MG/5 ML SYR IV ONE (12:25)
[2020-09-15] MEDS ORDERED: fentaNYL (PF) 50 MCG/ML 2 ML AMP ONE (12:25)
[2020-09-15] MEDS ORDERED: LIDOCAINE 1%-EPI 1:100,000 20 ML VIAL SQ ONE ×2 (12:55)
--- NOTE | 2020-09-15 13:30 | P.ANPRN ---
Procedure Note - Anesthesia - Nerve Block Performed Right Erector Spinae Single Time Out Performed: Yes Date of Procedure: 09/15/20 Procedure Start Time: 10:48 Procedure Stop Time: 11:00 Location of Patient: PreOp Indication: Acute Post-Operative Pain, Dx/Pain Location, Requested by Surgeon Specifically requested for management of pain by DrFredrick: Toño Moe Sedation Type: Sedate with meaningful contact maintained Preparation: Sterile Prep Position: Sitting Catheter: None Needle Types: Kamryn Needle Gauge: 20 Ultrasound used to visualize needle placement: Yes Ultrasound used to observe medication spread: Yes Injectate: 0.5% Ropivacaine (see comment for volume) Blood Aspirated: No Pain Paresthesia on Injection Noted: No Resistance on Injection: Normal Image Stored and Saved: Yes Events: Uneventful and Well Tolerated (20cc 0.5% Ropivacaine)
[2020-09-15] MEDS ORDERED: LACTATED RINGERS 1,000 ML IV ONE (13:44)
[2020-09-15 14:04] VITALS: TEMP 97.3
[2020-09-15 14:43] VITALS: RESP 16
--- NOTE | 2020-09-15 14:44 | P.OP ---
Date of Procedure: 09/15/20 Preoperative Diagnosis: Right inguinal hernia Postoperative Diagnosis: Right inguinal hernia Procedure(s) Performed: Robotic-assisted right inguinal hernia repair Anesthesia: ROD Surgeon: Toño Moe Estimated Blood Loss (ml): 5 Condition: stable Disposition: PACU Description of Procedure: Patient as well as operative suite nurses supine position underwent general endotracheal anesthesia per Department of anesthesia prepped and draped usual sterile fashion timeout performed correct patient correct procedure correct site was verified. A 12 mm incision was made directly over the umbilicus carried down the fascia which was incised and the abdomen was entered under direct visualization and port was placed abdomen was insufflated no injuries were noted to 8 mm ports were placed on either side lateral to this and the patient was placed in Trendelenburg the robot was docked. Attention was turned to the right groin where there is a right internal hernia and no left inguinal hernia was noted. The peritoneum was taken down to the pubis medially to the so as both posteriorly and laterally the hernia sac was reduced off the cord structures and sure to preserve the cord structures. Progrip mesh was placed in the peritoneum was sutured back in place using 3-0 vlock. The supraumbilical port site was closed with 0 Vicryl for fascial stitch with aid of a Deepak-Mariela suture passer. All ports removed under direct visualization abdomen was desufflated Skin was closed with 4-0 Monocryl suture in subcuticular fashion with skin glue patient tolerated procedure well no apparent complications Plan - Discharge Summary Discharge Rx Participant: No New Discharge Prescriptions: No Action Cholecalciferol (Vitamin D3) [Vitamin D3] 5,000 unit PO DAILY Rosuvastatin [Crestor] 20 mg PO HS #30 tablet Aspirin 81 mg PO DAILY chew Metoprolol Tartrate [Lopressor] 25 mg PO BID #180 tab Nitroglycerin Sl Tabs [Nitrostat] 0.4 mg SUBLINGUAL Q5M PRN #25 tab PRN Reason: Chest Pain lisinopriL [Zestril] 2.5 mg PO DAILY #90 tab Ezetimibe [Zetia] 10 mg PO DAILY Discharge Medication List Cholecalciferol (Vitamin D3) [Vitamin D3] 5,000 unit PO DAILY 12/08/18 [History] Rosuvastatin [Crestor] 20 mg PO HS #30 tablet 12/09/18 [Rx] Aspirin 81 mg PO DAILY chew 12/10/18 [Rx] Metoprolol Tartrate [Lopressor] 25 mg PO BID #180 tab 12/10/18 [Rx] Nitroglycerin Sl Tabs [Nitrostat] 0.4 mg SUBLINGUAL Q5M PRN #25 tab 12/10/18 [Rx] lisinopriL [Zestril] 2.5 mg PO DAILY #90 tab 12/10/18 [Rx] Ezetimibe [Zetia] 10 mg PO DAILY 08/27/20 [History]
[2020-09-15] MEDS ORDERED: HYDROcodone/APAP 5-325MG 1 EACH TAB ONE (14:58)
[2020-09-15] MEDS ORDERED: HYDROcodone/APAP 5-325MG 1 EACH TAB PO ONE (14:58)
[2020-09-15 17:09] VITALS: BP 138/75; PULSE 85
== END 2020-09-15 17:15 | disposition home or self-care (01) ==
LOC: OR 09:45
PROVIDERS: ATTEND Student in an Organized Health Care Education/Training Program
DX: K40.90 Unilateral inguinal hernia, without obstruction or gangrene, not specified as recurrent (principal); I10 Essential (primary) hypertension; E78.5 Hyperlipidemia, unspecified; I25.2 Old myocardial infarction; F17.210 Nicotine dependence, cigarettes, uncomplicated; Z95.5 Presence of coronary angioplasty implant and graft; Z79.899 Other long term (current) drug therapy; Z88.5 Allergy status to narcotic agent; Z91.041 Radiographic dye allergy status; Z98.890 Other specified postprocedural states
CPT/HCPCS: 49650; 64461; J2250; J1644; J1100; J2710; J0690; J2405; J2001; J3010; J1170; J2795; J0330; J2704; 76942

== ENCOUNTER → 2020-11-03 | Outpatient (CLI) | payer OTHER ==
[2020-11-03 18:18] LABS: Chol/HDL Ratio 3.39; LDL Cholesterol,Calculated 69.4 mg/dL (0.0-131.0); VLDL Calculation 21.6 mg/dL (5.00-40.00)
== END | disposition home or self-care (01) ==
LOC: LABWHC1 08:14
PROVIDERS: ATTEND Nurse Practitioner Adult Health
DX: E78.2 Mixed hyperlipidemia (principal)
CPT/HCPCS: 36415; 80061; 84450; 84460

== ENCOUNTER → 2021-06-19 | Outpatient (CLI) | payer BC ==
[2021-06-19 11:57] LABS: ALT 23 U/L (10-49); AST 17 U/L (14-35); African American GFR (CKD) 110.3 (60.0-200.0); Albumin 4.3 g/dL (3.8-4.9); Albumin/Globulin Ratio 1.79 (1.60-3.17); Alkaline Phosphatase 94 U/L (41-126); BUN/Creat Ratio 17.44 Ratio (12.00-20.00); Blood Urea Nitrogen 15.7 mg/dL (9.0-27.0); Calcium 9.5 mg/dL (8.7-10.3); Chloride 102 mmol/L (96-109); Chol/HDL Ratio 2.53 Ratio; Globulin 2.4 g/dL (1.6-3.3); Glucose 87 mg/dL (70-110); LDL Cholesterol,Calculated 68.8 mg/dL (0.0-131.0); Non-African American GFR(CKD) 95.1 (60.0-200.0); Potassium 4.7 mmol/L (3.5-5.5); Sodium 139 mmol/L (135-145); Total Protein 6.7 g/dL (6.2-8.2); VLDL Calculation 15.32 mg/dL (5.00-40.00)
== END | disposition home or self-care (01) ==
LOC: LABWHC1 08:08
PROVIDERS: ATTEND Internal Medicine Interventional Cardiology
DX: E78.2 Mixed hyperlipidemia (principal)
CPT/HCPCS: 36415; 80053; 80061

== ENCOUNTER 2021-09-22 05:27 | Emergency (ER) | payer BC ==
[2021-09-22] MEDS ORDERED: DIAZEPAM 5 MG/ML 2 ML INJ IVP STA (06:46)
[2021-09-22] MEDS ORDERED: KETOROLAC 15 MG/ML 1 ML VIAL IVP STA (06:46)
[2021-09-22] MEDS ORDERED: methylPREDNISolone SOD SUCCI 125 MG/2 ML VIAL IV STA (06:46)
--- NOTE | 2021-09-22 07:36 | ED ---
Back Pain HPI - General Chief Complaint: Back Pain/Injury Stated Complaint: Back Pain Time Seen by Provider: 09/22/21 06:16 Source: patient, EMS, RN notes reviewed Mode of arrival: ambulatory Limitations: no limitations - History of Present Illness Initial Comments: This a 46-year-old male presents emergency Department chief complaint of low back pain. Patient presents via EMS was given fentanyl prior arrival which he states helped some of his pain. Patient states that he occasionally has some back pain no history of surgeries denies any bowel, bladder incontinence or retention or saddle anesthesias. Patient states does have some right leg pain radiating down. He has no decrease strength he states it just hurts to move. Patient states he feels spasms, tenderness the right lumbar region no trauma no abdominal pain no dysuria. - Related Data Home Medications Medication Instructions Recorded Confirmed Cholecalciferol (Vitamin D3) 5,000 unit PO DAILY 12/08/18 09/15/20 [Vitamin D3] Ezetimibe [Zetia] 10 mg PO DAILY 08/27/20 09/15/20 Previous Rx's Medication Instructions Recorded Rosuvastatin [Crestor] 20 mg PO HS #30 tablet 12/09/18 Aspirin 81 mg PO DAILY chew 12/10/18 Metoprolol Tartrate [Lopressor] 25 mg PO BID #180 tab 12/10/18 Nitroglycerin Sl Tabs [Nitrostat] 0.4 mg SUBLINGUAL Q5M PRN #25 tab 12/10/18 lisinopriL [Zestril] 2.5 mg PO DAILY #90 tab 12/10/18 Docusate [Colace] 100 mg PO DAILY 10 Days #10 capsule 09/15/20 HYDROcodone/APAP 5-325MG [[place] 1 tab PO Q6HR PRN 3 Days #12 tab 09/15/20 5-325] HYDROcodone/APAP 5-325MG [[place] 1 tab PO Q6HR PRN 3 Days #12 tab 09/15/20 5-325] Cyclobenzaprine [Flexeril] 10 mg PO TID PRN #15 tab 09/22/21 HYDROcodone/APAP 7.5-325MG [[place] 1 tab PO Q6HR PRN 3 Days #12 tab 09/22/21 7.5-325] Ibuprofen [Motrin] 600 mg PO Q8HR PRN #20 tab 09/22/21 predniSONE 50 mg PO DAILY #5 tab 09/22/21 Allergies Allergy/AdvReac Type Severity Reaction Status Date / Time Iodinated Contrast Media Allergy Anaphylaxis Verified 09/22/21 05:36 [Iodinated Contrast- Oral and IV Dye] propoxyphene Allergy NOSE BLEEDS Verified 09/22/21 05:36 [From Darvocet-N 100] Review of Systems ROS Statement: Those systems with pertinent positive or pertinent negative responses have been documented in the HPI. ROS Other: All systems not noted in ROS Statement are negative. Past Medical History Past Medical History: Hyperlipidemia, Hypertension, Myocardial Infarction ([place]), Pneumonia Additional Past Medical History / Comment(s): Diverticulitis. Chronic back pain. kidney stones Last Myocardial Infarction Date:: 02/07/19 History of Any Multi-Drug Resistant Organisms: None Reported Past Surgical History: Heart Catheterization With Stent, Hernia Repair, Orthopedic Surgery Additional Past Surgical History / Comment(s): COLONOSCOPY. LT ANKLE SX. BILAT KNEE SCOPES Past Anesthesia/Blood Transfusion Reactions: No Reported Reaction Date of Last Stent Placement:: December 08, 2018 Past Psychological History: No Psychological Hx Reported Smoking Status: Current every day smoker - Past Family History Father Family Medical History: Cancer, Congestive Heart Failure (CHF), Coronary Artery Disease (CAD), Myocardial Infarction ([place]) Sister(s) Family Medical History: Cancer General Exam Limitations: no limitations General appearance: alert, in no apparent distress Head exam: Present: atraumatic, normocephalic, normal inspection Respiratory exam: Present: normal lung sounds bilaterally. Absent: respiratory distress, wheezes, rales, rhonchi, stridor Cardiovascular Exam: Present: regular rate, normal rhythm, normal heart sounds. Absent: systolic murmur, diastolic murmur, rubs, gallop, clicks GI/Abdominal exam: Present: soft, normal bowel sounds. Absent: distended, tenderness, guarding, rebound, rigid Extremities exam: Present: other (Lower extremity strength equal bilaterally neurovascular intact equal color equal warmth) Back exam: Present: tenderness, muscle spasm, paraspinal tenderness. Absent: full ROM, CVA tenderness (R), CVA tenderness (L), vertebral tenderness Neurological exam: Present: alert, oriented X3, reflexes normal. Absent: motor sensory deficit Skin exam: Present: warm, dry, intact, normal color. Absent: rash Course Vital Signs 09/22/21 05:31 Temperature 98.1 F Pulse Rate 81 Respiratory 18 Rate Blood Pressure 122/89 O2 Sat by Pulse 93 L Oximetry Medical Decision Making - Medical Decision Making TEG shows evidence of spinal stenosis, disc bulging on the thecal sac. She patient has no red flag symptoms. Patient's pain is greatly improved. Patient discharged with pain control, steroids and follow-up with orthopedics. Disposition Clinical Impression: Lumbar back pain with radiculopathy affecting right lower extremity, Bulging lumbar disc Disposition: HOME SELF-CARE Condition: Stable Instructions (If sedation given, give patient instructions): Acute Low Back Pain (ED) Additional Instructions: Please return to the Emergency Department if symptoms worsen or any other concerns. Prescriptions: Cyclobenzaprine [Flexeril] 10 mg PO TID PRN #15 tab PRN Reason: Muscle Spasm Ibuprofen [Motrin] 600 mg PO Q8HR PRN #20 tab PRN Reason: Pain HYDROcodone/APAP 7.5-325MG [[place] 7.5-325] 1 tab PO Q6HR PRN 3 Days #12 tab PRN Reason: Pain predniSONE 50 mg PO DAILY #5 tab Is patient prescribed a controlled substance at d/c from ED?: No Referrals: Samuel Singh MD [Primary Care Provider] - 1-2 days Arden Joshi DO [Doctor of Osteopathic Medicine] - 1-2 days Time of Disposition: 08:42
--- NOTE | 2021-09-22 08:17 | CT ---
EXAMINATION TYPE: CT lumbar spine wo con DATE OF EXAM: 09/22/2021 COMPARISON: None HISTORY: Pain, right radicular symptoms CT DLP: 914.[address] of the lumbar spine was performed. Bone and soft tissue window settings are submitted as well as coronal and sagittal reconstructions. L1-L2: Normal disc space height. No disc herniation protrusion or central stenosis. No facet joint arthropathy. No evidence for foraminal encroachment. L2-L3: Normal disc space height. No disc herniation protrusion or central stenosis. No facet joint arthropathy. No evidence for foraminal encroachment. L3-L4: Normal disc space height. No disc herniation protrusion or central stenosis. No facet joint arthropathy. No evidence for foraminal encroachment. L4-L5: Mild degenerative disc space narrowing. Grade 1 anterolisthesis L4 and L5 of 2 mm. Moderate ci rcumferential disc bulge greatest posteriorly with effacement of the ventral thecal sac. Mild central stenosis noted. Mild bilateral foraminal encroachment identified. L5-S1: Normal disc space height. No disc herniation protrusion or central stenosis. No facet joint arthropathy. No evidence for foraminal encroachment. No paraspinal masses are identified. Lumbar segments are free if fracture. IMPRESSION: 1. Mild L4-5 Central stenosis as noted.
[2021-09-22 08:55] VITALS: BP 118/84; PULSE 69; RESP 16; TEMP 97.5
== END 2021-09-22 09:01 | disposition home or self-care (01) ==
LOC: EC 05:27
DX: M54.16 Radiculopathy, lumbar region (principal); I25.2 Old myocardial infarction; I10 Essential (primary) hypertension; Z88.8 Allergy status to other drugs, medicaments and biological substances; F17.200 Nicotine dependence, unspecified, uncomplicated; Z91.041 Radiographic dye allergy status
CPT/HCPCS: 72131; 99284; 96374; 96375; J2930; J3360; J1885

== ENCOUNTER → 2021-12-25 | Outpatient (CLI) | payer BC ==
[2021-12-25 11:40] LABS: ALT 25 U/L (10-49); AST 21 U/L (14-35); African American GFR (CKD) 114.9 (60.0-200.0); Albumin 4.3 g/dL (3.8-4.9); Albumin/Globulin Ratio 1.95 (1.60-3.17); Alkaline Phosphatase 101 U/L (41-126); BUN/Creat Ratio 24.13 Ratio (12.00-20.00); Blood Urea Nitrogen 19.3 mg/dL (9.0-27.0); Calcium 8.9 mg/dL (8.7-10.3); Carbon Dioxide 25.1 mmol/L (20.0-27.5); Chloride 106 mmol/L (96-109); Chol/HDL Ratio 2.91 Ratio; Globulin 2.2 g/dL (1.6-3.3); Glucose 99 mg/dL (70-110); LDL Cholesterol,Calculated 71.1 mg/dL (0.0-131.0); Non-African American GFR(CKD) 99.2 (60.0-200.0); Potassium 4.6 mmol/L (3.5-5.5); Sodium 139 mmol/L (135-145); Total Protein 6.5 g/dL (6.2-8.2); VLDL Calculation 16.94 mg/dL (5.00-40.00)
== END | disposition home or self-care (01) ==
LOC: LABWHC1 08:13
PROVIDERS: ATTEND Internal Medicine Interventional Cardiology
DX: E78.2 Mixed hyperlipidemia (principal)
CPT/HCPCS: 36415; 80053; 80061

== ENCOUNTER 2022-07-20 07:24 | Day surgery (SDC) | payer BC ==
[2022-07-15 13:56] VITALS: BMI 27.8
[2022-07-20] MEDS ORDERED: LIDOCAINE 1% (10MG/ML) FOR IV START INTRADERMA PRN (07:38)
[2022-07-20] MEDS ORDERED: LACTATED RINGERS 1,000 ML IV SCH (07:38)
[2022-07-20 08:04] VITALS: RESP 16; TEMP 97.8
[2022-07-20] MEDS ORDERED: LIDOCAINE 2% INJ 20 MG/ML (2 ML VIAL) ONE (08:37)
[2022-07-20] MEDS ORDERED: PROPOFOL 10 MG/ML 20 ML VIAL IV ONE (08:37)
--- NOTE | 2022-07-20 08:55 | P.PCN ---
Date of Procedure: 07/20/22 Procedure(s) Performed: Brief history: Patient is a pleasant 56-year-old white male scheduled for an elective upper endoscopy as well as colonoscopy as a part of evaluation of, GERD and screening for colon cancer. History of colon polyps. He started having epigastric pain and heartburn with chest pain and went to the ER a month ago and had cardiac workup that was negative. Since then he has been on Pepcid 20 mg twice daily and symptoms are significantly improved. Procedure performed: Esophagogastroduodenoscopy with biopsy Colonoscopy with biopsy Preoperative diagnosis: GERD . history of colon polyps Anesthesia: MAC Procedure: After informed consent was obtained from the patient was brought into the endoscopy unit and IV sedation was administered by anesthesia under continuous monitoring. Initially upper endoscopy was done. The Olympus GF 160 video endoscope was inserted inserted into the mouth and esophagus intubated without any difficulty and was gradually advanced into the stomach and duodenum and carefully examined the duodenum appeared normal. Scope was then withdrawn into the stomach. There was mild gastritis noted antral ulcer. Biopsies were done from this area.. Mucosa of the body, cardia and fundus appeared normal. The scope was then withdrawn into the esophagus. Small hiatal hernia noted The GE junction was located at 40 cm to the incisors. It appeared regular with circumferential erythema consistent with LA grade a reflux esophagitis. Rest of the esophagus appeared normal. Patient tolerated the procedure well. At this time the patient continued to remain sedation. Initial digital rectal examination was normal. Olympus CF 160 video colonoscope was then inserted into the rectum and gradually advanced to the cecum without any difficulty. Careful examination was performed as the scope was gradually being withdrawn. The prep was excellent. The cecum had a 3-4 mm sessile polyp that was removed by cold biopsy. Rest of the, ascending colon, transverse colon, descending colon, sigmoid colon and rectum appeared normal. Scattered sigmoid diverticulosis Retroflexion was performed in the rectum and grade 2 internal hemorrhoids were noted. Patient tolerated the procedure well. Impression: 1. Upper endoscopy revealed mild antral gastritis, LA grade a reflux esophagitis and mild gastritis 2. Colonoscopy revealed 3-4 mm sessile cecal polyp status post-cold biopsy and scattered sigmoid diverticulosis/grade 2 internal hemorrhoids Recommendations: Findings of this examination were discussed with the patient as well as his family. He was advised to follow with the biopsy results. If the biopsies adenoma he can have a repeat colonoscopy in 5 years.In the meantime he will continue with famotidine 20 mg twice daily and follow antireflux measures.
[2022-07-20 09:19] VITALS: BP 113/71; PULSE 83
== END 2022-07-20 09:37 | disposition home or self-care (01) ==
LOC: ORWHC2ENDO 07:24
PROVIDERS: ATTEND Internal Medicine Gastroenterology
DX: K21.00 Gastro-esophageal reflux disease with esophagitis, without bleeding (principal); K63.5 Polyp of colon; K29.50 Unspecified chronic gastritis without bleeding; K44.9 Diaphragmatic hernia without obstruction or gangrene; K57.30 Diverticulosis of large intestine without perforation or abscess without bleeding; Z86.010 Personal history of colon polyps; K64.1 Second degree hemorrhoids
CPT/HCPCS: 88305; 45380; 43239; J2704; J2001

== ENCOUNTER → 2022-11-26 | Outpatient (CLI) | payer BC ==
[2022-11-26 13:35] LABS: ALT 27 U/L (10-49); AST 23 U/L (14-35); Chol/HDL Ratio 2.94 Ratio; VLDL Calculation 19.34 mg/dL (5.00-40.00)
== END | disposition home or self-care (01) ==
LOC: LABWHC1 08:18
PROVIDERS: ATTEND Internal Medicine Interventional Cardiology
DX: E78.2 Mixed hyperlipidemia (principal)
CPT/HCPCS: 36415; 80061; 84450; 84460

== ENCOUNTER 2023-03-24 22:20 | Emergency (ER) | payer BC ==
[2023-03-24 22:50] VITALS: TEMP 97.8
[2023-03-24] MEDS ORDERED: KETOROLAC 15 MG/ML 1 ML VIAL IVP STA (22:51)
--- NOTE | 2023-03-24 22:52 | ED ---
General Adult HPI - General Chief complaint: Extremity Injury, Upper Stated complaint: Slipped coming out of tre[place]and Time Seen by Provider: 03/24/23 22:32 Source: patient, RN notes reviewed Mode of arrival: ambulatory Limitations: no limitations - History of Present Illness Initial comments: 57-year-old male presents to the emergency department with chief complaint of left shoulder injury. He states that he was coming out of his tree stand on Monday when he fell. He states that he grabbed onto the foot peg and was hanging from it. He states that following this he fell onto the ground onto his left abducted shoulder. He denies any head injury. Denies blood thinners. He states that he is had difficulty lifting his arm above his head since the injury. He denies any numbness, tingling. He does report that occasionally the pain shoots down to his hand. - Related Data Home Medications Medication Instructions Recorded Confirmed Ezetimibe [Zetia] 10 mg PO HS 08/27/20 07/15/22 Cholecalciferol [Vitamin D3 (125 125 mcg PO HS 06/04/22 07/15/22 Mcg = 5000 Iu)] Famotidine [Pepcid] 40 mg PO DAILY 07/15/22 07/15/22 Previous Rx's Medication Instructions Recorded Rosuvastatin [Crestor] 20 mg PO HS #30 tablet 12/09/18 Aspirin 81 mg PO DAILY chew 12/10/18 Metoprolol Tartrate [Lopressor] 25 mg PO BID #180 tab 12/10/18 lisinopriL [Zestril] 2.5 mg PO DAILY #90 tab 12/10/18 Cyclobenzaprine [Flexeril] 5 mg PO TID PRN #15 tablet 03/25/23 Ketorolac [Toradol] 10 mg PO Q8HR #15 tab 03/25/23 Lidocaine 5% Patch [Lidoderm 5% 1 patch TOPICAL DAILY #30 patch 03/25/23 Patch] Allergies Allergy/AdvReac Type Severity Reaction Status Date / Time Iodinated Contrast Media Allergy Anaphylaxis Verified 07/20/22 07:58 [Iodinated Contrast- Oral and IV Dye] propoxyphene AdvReac NOSE BLEEDS Verified 07/20/22 07:58 [From Darvocet-N 100] Review of Systems ROS Statement: Those systems with pertinent positive or pertinent negative responses have been documented in the HPI. ROS Other: All systems not noted in ROS Statement are negative. Past Medical History Past Medical History: Hyperlipidemia, Hypertension, Myocardial Infarction (RI), Pneumonia Additional Past Medical History / Comment(s): Diverticulitis. Chronic back pain. kidney stones Last Myocardial Infarction Date:: 12/08/18 History of Any Multi-Drug Resistant Organisms: None Reported Past Surgical History: Heart Catheterization With Stent, Hernia Repair, Orthopedic Surgery, Tonsillectomy Additional Past Surgical History / Comment(s): COLONOSCOPY. LT ANKLE SX. BILAT KNEE SCOPES Past Anesthesia/Blood Transfusion Reactions: No Reported Reaction Date of Last Stent Placement:: December 08, 2018 Past Psychological History: No Psychological Hx Reported Smoking Status: Current every day smoker Past Alcohol Use History: Occasional Past Drug Use History: None Reported - Past Family History Father Family Medical History: Cancer, Congestive Heart Failure (CHF), Coronary Artery Disease (CAD), Myocardial Infarction (RI) Sister(s) Family Medical History: Cancer General Exam Limitations: no limitations General appearance: alert, in no apparent distress Head exam: Present: atraumatic, normocephalic, normal inspection Eye exam: Present: normal appearance, PERRL, EOMI. Absent: scleral icterus, conjunctival injection, periorbital swelling ENT exam: Present: normal exam, mucous membranes moist Respiratory exam: Present: normal lung sounds bilaterally. Absent: respiratory distress, wheezes, rales, rhonchi, stridor Cardiovascular Exam: Present: regular rate, normal rhythm, normal heart sounds. Absent: systolic murmur, diastolic murmur, rubs, gallop, clicks Extremities exam: Present: tenderness, normal capillary refill, other (. Pulses 2+, tenderness over the proximal humerus on the left). Absent: full ROM Neurological exam: Present: alert, oriented X3 Psychiatric exam: Present: normal affect, normal mood Skin exam: Present: warm, dry, intact, normal color. Absent: rash Course Vital Signs 03/24/23 03/25/23 22:22 00:58 Temperature 97.8 F Pulse Rate 106 H 79 Respiratory 20 18 Rate Blood Pressure 135/88 130/77 O2 Sat by Pulse 96 96 Oximetry Medical Decision Making - Medical Decision Making Was pt. sent in by a medical professional or institution (, PA, MIDDLEWARE ENGINEER, urgent care, hospital, or long term...) When possible be specific @ -No Did you speak to anyone other than the patient for history (EMS, parent, family, police, friend...)? What history was obtained from this source @ -No Did you review nursing and triage notes (agree or disagree)? Why? @ -I reviewed and agree with nursing and triage notes Were old charts reviewed (outside hosp., previous admission, EMS record, old EKG, old radiological studies, urgent care reports/EKG's, long term records)? Report findings @ -No old charts were reviewed Differential Diagnosis (chest pain, altered mental status, abdominal pain women, abdominal pain men, vaginal bleeding, weakness, fever, dyspnea, syncope, head ache, dizziness, GI bleed, back pain, seizure, CVA, palpatations, mental health, musculoskeletal)? @ -Differential Musculoskeletal Muscular strain, contusion, ligament sprain, fracture, arthritis, septic arthritis, bursitis, cellulitis, muscle spasm, nerve compression, DVT, arterial occlusion, herpes zoster, electrolyte abnormality, tumor.... This is not meant to be in all inclusive list EKG interpreted by me (3pts min.). @ -None X-rays interpreted by me (1pt min.). @ -X-ray left elbow shows no acute fracture or dislocation X-rays of left shoulder shows no acute fracture or dislocation CT interpreted by me (1pt min.). @ -None done U/S interpreted by me (1pt. min.). @ -None done What testing was considered but not performed or refused? (CT, X-rays, U/S, labs)? Why? @ -None What meds were considered but not given or refused? Why? @ -None Did you discuss the management of the patient with other professionals (professionals i.e. , PA, MIDDLEWARE ENGINEER, lab, RT, psych nurse, social worker masters, barbed wire machine operator, teacher, accounts officer, catalytic case operator)? Give summary @ -No Was smoking cessation discussed for >3mins.? @ -No Was critical care preformed (if so, how long)? @ -No Were there social determinants of health that impacted care today? How? (Homelessness, low income, unemployed, alcoholism, drug addiction, transportation, low edu. Level, literacy, decrease access to med. care, correction, rehab)? @ -No Was there de-escalation of care discussed even if they declined (Discuss DNR or withdrawal of care, Hospice)? DNR status @ -No What co-morbidities impacted this encounter? (DM, HTN, Smoking, COPD, CAD, Cancer, CVA, ARF, Chemo, Hep., AIDS, mental health diagnosis, sleep apnea, morbid obesity)? @ -None Was patient admitted / discharged? Hospital course, mention meds given and route, prescriptions, significant lab abnormalities, going to OR and other pertinent info. @ -discharged. Patient presented to the emergency department chief complaint of left shoulder injury that occurred 3 days prior. Patient neurovascularly intact. He has decreased range of motion in abduction plane of the left shoulder. X-ray of the left elbow and shoulder show no acute fracture dislocation, hydroxyapatite deposition in the rotator cuff. Patient given 2 doses of Toradol in the emergency department which helped his symptoms. Advised to rest, ice, elevate. Prescription for 3 days with the Toradol and Flexeril prescribed for patient. Patient will follow-up with his primary care provider. Patient stable at time of discharge. Case discussed with Dr. Cornejo. Undiagnosed new problem with uncertain prognosis? @ -No Drug Therapy requiring intensive monitoring for toxicity (Heparin, Nitro, Insulin, Cardizem)? @ -No Were any procedures done? @ -No Diagnosis/symptom? @ -Shoulder sprain Acute, or Chronic, or Acute on Chronic? @ -Acute Uncomplicated (without systemic symptoms) or Complicated (systemic symptoms)? @ -Uncomplicated Side effects of treatment? @ -No Exacerbation, Progression, or Severe Exacerbation? @ -No Poses a threat to life or bodily function? How? (Chest pain, [place], RI, pneumonia, PE, COPD, DKA, ARF, appy, cholecystitis, CVA, Diverticulitis, Homicidal, Suic idal, threat to staff... and all critical care pts) @ -No Disposition Clinical Impression: Strain of shoulder Disposition: HOME SELF-CARE Condition: Stable Instructions (If sedation given, give patient instructions): Shoulder Sprain (ED) Additional Instructions: Please follow up with orthopedics. Rest, ice, elevate the shoulder. Return to the emergency department for new or worsening symptoms. Prescriptions: Cyclobenzaprine [Flexeril] 5 mg PO TID PRN #15 tablet PRN Reason: Muscle Spasm Lidocaine 5% Patch [Lidoderm 5% Patch] 1 patch TOPICAL DAILY #30 patch Ketorolac [Toradol] 10 mg PO Q8HR #15 tab Is patient prescribed a controlled substance at d/c from ED?: No Referrals: Samuel Singh MD [Primary Care Provider] - 1-2 days Jabier Fletcher MD [STAFF PHYSICIAN] - 1-2 days
[2023-03-24] MEDS ORDERED: KETOROLAC 15 MG/ML 1 ML VIAL IM STA (23:22)
--- NOTE | 2023-03-25 00:36 | XR ---
EXAM: XR Left Shoulder Complete, 2 or More Views CLINICAL HISTORY: ITS.REASON XR Reason: fall TECHNIQUE: Two or more views of the left shoulder. COMPARISON: No relevant prior studies available. FINDINGS: Bones/joints: Areas of hydroxyapatite deposition in the rotator cuff, correlate for calcific tendinitis. Osseous demineralization. No fracture or dislocation. Soft tissues: Unremarkable. IMPRESSION: Areas of hydroxyapatite deposition in the rotator cuff, correlate for calcific tendinitis.
[2023-03-25] MEDS ORDERED: ACET/COD 300 MG/30 MG STARTER PACK 6 TAB BTL PO STA (00:40)
[2023-03-25] MEDS ORDERED: LIDOCAINE 4% PATCH TOPICAL ONE (00:43)
[2023-03-25] MEDS ORDERED: KETOROLAC 15 MG/ML 1 ML VIAL IM STA (00:43)
--- NOTE | 2023-03-25 00:45 | XR ---
EXAM: XR Left Elbow Complete, 3 or More Views CLINICAL HISTORY: ITS.REASON XR Reason: fall TECHNIQUE: Frontal, lateral and oblique views of the left elbow. COMPARISON: No relevant prior studies available. FINDINGS: Bones/joints: Unremarkable. No acute fracture. No dislocation. Soft tissues: Unremarkable. IMPRESSION: No acute fracture. No dislocation.
[2023-03-25 01:12] VITALS: BP 130/77; PULSE 79; RESP 18
== END 2023-03-25 03:18 | disposition home or self-care (01) ==
LOC: EC 22:20
DX: S46.912A Strain of unspecified muscle, fascia and tendon at shoulder and upper arm level, left arm, initial encounter (principal); I10 Essential (primary) hypertension; I25.2 Old myocardial infarction; F17.200 Nicotine dependence, unspecified, uncomplicated; Z91.041 Radiographic dye allergy status; Z88.8 Allergy status to other drugs, medicaments and biological substances; Z79.899 Other long term (current) drug therapy; W14.XXXA Fall from tree, initial encounter
CPT/HCPCS: 99283 ×2; 96372 ×4; 73030; 73070; J1885 ×2

== ENCOUNTER → 2023-06-03 | Outpatient (CLI) | payer BC ==
[2023-06-03 13:45] LABS: ALT 17 U/L (10-49); AST 19 U/L (14-35); Albumin 4.2 g/dL (3.8-4.9); Albumin/Globulin Ratio 1.56 Ratio (1.60-3.17); Alkaline Phosphatase 101 U/L (41-126); Blood Urea Nitrogen 12.4 mg/dL (9.0-27.0); Calcium 9.6 mg/dL (8.7-10.3); Carbon Dioxide 25.1 mmol/L (21.6-31.8); Chloride 107 mmol/L (96-109); Chol/HDL Ratio 2.49 Ratio; Globulin 2.7 g/dL (1.6-3.3); Glucose 94 mg/dL (70-110); LDL Cholesterol,Calculated 63.6 mg/dL (0.0-131.0); Potassium 4.7 mmol/L (3.5-5.5); Sodium 142 mmol/L (135-145); Total Bilirubin 0.5 mg/dL (0.3-1.2); Total Protein 6.9 g/dL (6.2-8.2); VLDL Calculation 12.92 mg/dL (5.00-40.00)
== END | disposition home or self-care (01) ==
LOC: LABWHC1 08:37
PROVIDERS: ATTEND Nurse Practitioner Adult Health
DX: I10 Essential (primary) hypertension (principal); E78.2 Mixed hyperlipidemia
CPT/HCPCS: 36415; 80053; 80061

== ENCOUNTER → 2024-02-24 | Outpatient (CLI) | payer BC ==
[2024-02-24 13:24] LABS: ALT 21 U/L (10-49); AST 19 U/L (14-35); Chol/HDL Ratio 2.89 Ratio; LDL Cholesterol,Calculated 88.7 mg/dL (0.0-131.0)
== END | disposition home or self-care (01) ==
LOC: LABWHC1 08:10
PROVIDERS: ATTEND Internal Medicine Interventional Cardiology
DX: E78.2 Mixed hyperlipidemia (principal)
CPT/HCPCS: 36415; 80061; 84450; 84460

== ENCOUNTER → 2024-09-25 | Outpatient (CLI) | payer BC ==
[2024-09-25 10:50] LABS: ALT 23 U/L (10-49); AST 19 U/L (14-35); Albumin 4.1 g/dL (3.8-4.9); Albumin/Globulin Ratio 1.78 Ratio (1.60-3.17); Alkaline Phosphatase 94 U/L (41-126); BUN/Creat Ratio 15.22 Ratio (12.00-20.00); Blood Urea Nitrogen 13.7 mg/dL (9.0-27.0); Calcium 8.7 mg/dL (8.7-10.3); Carbon Dioxide 24.6 mmol/L (21.6-31.8); Chloride 105 mmol/L (96-109); Globulin 2.3 g/dL (1.6-3.3); Glucose 105 mg/dL (70-110); LDL Cholesterol,Calculated 58.2 mg/dL (0.0-131.0); Potassium 4.4 mmol/L (3.5-5.5); Sodium 138 mmol/L (135-145); Total Bilirubin 0.5 mg/dL (0.3-1.2); Total Protein 6.4 g/dL (6.2-8.2)
== END | disposition home or self-care (01) ==
LOC: LABWHC1 07:04
PROVIDERS: ATTEND Internal Medicine Interventional Cardiology
DX: E78.2 Mixed hyperlipidemia (principal)
CPT/HCPCS: 36415; 80053; 80061